=== PATIENT | female | born 1940 | race Caucasian/White ===

== ENCOUNTER 2022-06-19 08:37 | Day surgery (SDC) | payer OTHER ==
[~2022-06-19] VITALS: Ht 157.5 cm; Wt 64.4 kg
[2022-06-19] MEDS ORDERED: MEPERIDINE 50 MG/ML VIAL ONE (09:59)
[2022-06-19] MEDS ORDERED: MIDAZOLAM HCL 5 MG/5 ML VIAL ONE (10:00)
[2022-06-19 15:06] VITALS: BP_SYST 125
== END 2022-06-19 12:55 | disposition home or self-care (01) ==
LOC: SDS 08:37
PROVIDERS: ATTEND Internal Medicine Gastroenterology
DX: R10.13 Epigastric pain (principal); R14.0 Abdominal distension (gaseous); K29.50 Unspecified chronic gastritis without bleeding; K21.9 Gastro-esophageal reflux disease without esophagitis; K44.9 Diaphragmatic hernia without obstruction or gangrene; I10 Essential (primary) hypertension; E78.5 Hyperlipidemia, unspecified; Z88.0 Allergy status to penicillin; Z79.82 Long term (current) use of aspirin; Z79.899 Other long term (current) drug therapy
CPT/HCPCS: 43239; 87081; 36415; 88305; 88312; 88313; 99152; G0378; J2250; J2175